=== PATIENT | male | born 1980 | race Caucasian/White ===

== ENCOUNTER 2018-07-05 18:01 | Emergency (ER) | payer BC ==
--- NOTE | 2018-07-05 19:07 | ER Document Report ---
HPI - HPI Patient complains to provider of: sciatica Time Seen by Provider: 07/05/18 18:42 Onset: Other - year Onset/Duration: Persistent Quality of pain: Achy Severity: Severe Pain Level: 5 Context: Patient presents to the emergency department with complaints of right-sided sciatica. Patient reports he has had this for about a year. Patient just moved to the area. He reports that he was taking gabapentin for a year but he recently saw a primary care provider last Saturday and was placed on muscle relaxer. He was instructed to stop taking the gabapentin. He reports he started having pain increased yesterday. He denies trauma. Denies urinary bowel incontinence or retention. Denies any further symptoms. Patient reports the same type of pain just hurts more. Denies fever. Denies history of IV drug use. Associated Symptoms: None Exacerbated by: Movement Relieved by: Denies Similar symptoms previously: Yes Recently seen / treated by doctor: Yes Past Medical History - General Information source: Patient - Social History Smoking Status: Unknown if Ever Smoked Cigarette use (# per day): No Frequency of alcohol use: None Occupation: Construction Lives with: Family Family History: Reviewed & Not Pertinent Patient has suicidal ideation: No Patient has homicidal ideation: No - Medical History Medical History: Other - factor 5 Surgical Hx: Negative Vertical Provider Document - CONSTITUTIONAL Agree With Documented VS: Yes Exam Limitations: No Limitations General Appearance: WD/WN, Mild Distress - winces when moving from supine to sitting position - INFECTION CONTROL TRAVEL OUTSIDE OF THE [place] IN LAST 30 DAYS: No - HEENT HEENT: Atraumatic, Normocephalic - NECK Neck: Normal Inspection, Supple. negative: Lymphadenopathy-Left, Lymphadenopathy-Right - RESPIRATORY Respiratory: Breath Sounds Normal, No Respiratory Distress, Chest Non-Tender - CARDIOVASCULAR Cardiovascular: Regular Rate - GI/ABDOMEN Gastrointestinal: Abdomen Soft, Abdomen Non-Tender - BACK Back: Normal Inspection - No obvious deformity good distal movement and good reflexes no erythema no swelling no warmth patient complains of pain in right buttock down right leg. Positive right straight leg test - MUSCULOSKELETAL/EXTREMETIES Musculoskeletal/Extremeties: CORI BRADFORD - NEURO Level of Consciousness: Awake, Alert, Appropriate - DERM Integumentary: Warm, Dry Adult Front & Back Diagram: 1 - reports pain with palpation 2 - radiates down the right leg Course - Re-evaluation Re-evalutation: 07/05/18 19:59 Patient was instructed on the importance of following up with his primary care provider on Saturday to discuss his back pain. Possible return to gabapentin versus the muscle relaxer. Patient also needs to follow-up with primary care provider because he did have x-rays done and he needs to follow-up to see what the x-ray said. He was warned on signs and symptoms of red flags of back pain. He verbalized understanding. No further x-rays or MRI done since patient did not have a trauma nothing new except the change of medications from gabapentin to muscle relaxer. Dictation of this chart was performed using voice recognition software; therefore, there may be some unintended grammatical errors. - Vital Signs Vital signs: Temp Pulse Resp BP Pulse Ox 98.6 F 87 18 129/76 H 94 07/05/18 18:27 07/05/18 18:27 07/05/18 18:27 07/05/18 18:27 07/05/18 18:27 Discharge - Discharge Clinical Impression: Sciatica, right side Condition: Stable Disposition: HOME, SELF-CARE Instructions: Ice Packs ([facility]), Sciatica ([facility]) Additional Instructions: *You have been evaluated for back pain, sciatica *Take your medication as prescribed *Rest/Ice- heat as indicated *Follow up with your primary care provider Saturday *Return to ED for worsening condition, changes, needs
[2018-07-05 19:22] VITALS: BP 128/75
== END 2018-07-05 19:22 | disposition home or self-care (01) ==
LOC: ER 18:01
DX: M54.31 Sciatica, right side (principal)
CPT/HCPCS: 99283

== ENCOUNTER 2018-11-19 14:39 | Emergency (ER) | payer BC ==
[2018-11-19 14:46] VITALS: BP 120/66
[2018-11-19] MEDS ORDERED: ONDANSETRON HCL INJ/PF 4 MG/2 ML SDV IV ONE (14:50)
[2018-11-19] MEDS ORDERED: DICYCLOMINE HCL 20 MG TABLET PO ONE (14:51)
[2018-11-19] MEDS ORDERED: NORMAL SALINE 1000 ML 1,000 ML IV ONE (14:51)
--- NOTE | 2018-11-19 14:53 | ER Document Report ---
ED Medical Screen (RME) - General Chief Complaint: Nausea/Vomiting/Diarrhea Stated Complaint: VOMITTING Time Seen by Provider: 11/19/18 14:50 TRAVEL OUTSIDE OF THE [place] IN LAST 30 DAYS: No - HPI Notes: 11/19/18 14:51 Patient is a 38-year-old male no significant past medical history who presents emergency department complaining of nausea, vomiting, and watery diarrhea that began today. He ate chicken at [employer] yesterday, but no other new foods. No travel or recent antibiotics. Last episode of vomiting was in the waiting room. He has associated abdominal cramping which is resolved after he either has a bowel movement or vomits. Denies any headache, fever, URI, sore throat, chest pain, palpitations, syncope, cough, shortness of breath, wheeze, dyspnea, urinary retention, dysuria, hematuria, or rash. I have treated and performed a rapid initial assessment of this patient. A comprehensive ED assessment and evaluation of the patient, analysis of test results and completion of medical decision making process will be conducted by additional ED providers. PHYSICAL EXAMINATION: GENERAL: Well-appearing, well-nourished and in no acute distress. A&Ox4. Answers questions appropriately. LUNGS: Breath sounds clear to auscultation bilaterally and equal. No wheezes rales or rhonchi. HEART: Regular rate and rhythm without murmurs, rubs, gallops. ABDOMEN: Soft, nondistended abdomen. No guarding, no rebound. Normal bowel sounds present. No CVA tenderness bilaterally. No focal tenderness noted, but cannot elicit thorough exam in PIT. Extremities: No cyanosis, clubbing, or edema b/l. NEUROLOGICAL: Normal speech, normal gait. PSYCH: Normal mood, normal affect. - Related Data Allergies/Adverse Reactions: No Known Allergies Allergy (Verified 11/19/18 14:41) Past Medical History Renal/ Medical History: Denies: Hx Peritoneal Dialysis Physical Exam - Vital signs Vitals: Temp Pulse Resp BP Pulse Ox 99.4 F 107 H 18 120/66 96 11/19/18 14:46 11/19/18 14:46 11/19/18 14:46 11/19/18 14:46 11/19/18 14:46 Course - Vital Signs Vital signs: Temp Pulse Resp BP Pulse Ox 99.4 F 107 H 18 120/66 96 11/19/18 14:46 11/19/18 14:46 11/19/18 14:46 11/19/18 14:46 11/19/18 14:46
[2018-11-19 15:21] LABS: HEMATOCRIT 47.8 % (37.9-51.0); HEMOGLOBIN 16.5 g/dL (13.5-17.0); MEAN CORPUSCULAR HEMOGLOBIN 31.4 pg (27.0-33.4); MEAN CORPUSCULAR HGB CONC 34.6 g/dL (32.0-36.0); MEAN CORPUSCULAR VOLUME 91 fl (80-97); PLATELET COUNT 206 10^3/uL (150-450); RED BLOOD COUNT 5.27 10^6/uL (4.35-5.55); RED CELL DISTRIBUTION WIDTH 13.5 % (11.5-14.0); WHITE BLOOD COUNT 9.6 10^3/uL (4.0-10.5)
[2018-11-19 15:44] LABS: ALANINE AMINOTRANSFERASE 40 U/L (21-72); ALBUMIN 4.5 g/dL (3.5-5.0); ALKALINE PHOSPHATASE 45 U/L (38-126); ANION GAP 6 (5-19); ASPARTATE AMINO TRANSFERASE 28 U/L (17-59); BILIRUBIN,DIRECT 0.2 mg/dL (0.0-0.4); BILIRUBIN,TOTAL 0.9 mg/dL (0.2-1.3); BLOOD UREA NITROGEN 22 mg/dL (7-20); CALCIUM 10.3 mg/dL (8.4-10.2); CARBON DIOXIDE 30 mmol/L (22-30); CHLORIDE 105 mmol/L (98-107); GLUCOSE 122 mg/dL (75-110); LIPASE 671.3 U/L (23-300); POTASSIUM 4.5 mmol/L (3.6-5.0); SODIUM 141.1 mmol/L (137-145); TOTAL PROTEIN 7.1 g/dL (6.3-8.2)
[2018-11-19 15:57] LABS: ABSOLUTE LYMPHOCYTES# (MANUAL) 0.5 10^3/uL (0.5-4.7); ABSOLUTE MONOCYTES # (MANUAL) 0.6 10^3/uL (0.1-1.4); ABSOLUTE NEUTROPHILS# (MANUAL) 8.4 10^3/uL (1.7-8.2); BAND NEUTROPHILS % (MANUAL) 1 % (3-5); BASOPHILS % (MANUAL) 0 % (0-2); EOSINOPHILS % (MANUAL) 1 % (0-6); LYMPHOCYTES % (MANUAL) 5 % (13-45); MONOCYTES % (MANUAL) 6 % (3-13); SEGMENTED NEUTROPHILS % (MAN) 87 % (42-78); TOTAL CELLS COUNTED 100
[2018-11-19 15:58] LABS: PLATELET COMMENT ADEQUATE; TOXIC GRANULATION SLIGHT
--- NOTE | 2018-11-19 16:26 | ER Document Report ---
ED General - General Chief Complaint: Nausea/Vomiting/Diarrhea Stated Complaint: VOMITTING Time Seen by Provider: 11/19/18 14:50 Mode of Arrival: Ambulatory Information source: Patient TRAVEL OUTSIDE OF THE [place] IN LAST 30 DAYS: No - HPI Patient complains to provider of: Nausea, vomiting, diarrhea Onset: This morning Onset/Duration: Sudden Quality of pain: Achy, Cramping Severity: Severe Pain Level: 4 Associated symptoms: Chills Exacerbated by: Denies Relieved by: Denies Similar symptoms previously: No Recently seen / treated by doctor: No Notes: 38-year-old male coming in today chief complaint of loose stools this morning which became watery stools by this afternoon. Also now having some pain. Complaining of chills but no documented fever. and daughter sick with similar symptoms. Patient suspects meal at a local restaurant may have contributed to this. - Related Data Allergies/Adverse Reactions: No Known Allergies Allergy (Verified 11/19/18 14:41) Past Medical History - General Information source: Patient - Social History Smoking Status: Former Smoker Chew tobacco use (# tins/day): Yes Family History: Reviewed & Not Pertinent Patient has suicidal ideation: No Patient has homicidal ideation: No Renal/ Medical History: Denies: Hx Peritoneal Dialysis Review of Systems - Review of Systems Notes: Constitutional: No fevers. + chills. EENT: No eye redness. No eye pain. No ear pain. No sore throat. Cardiovascular: No chest pain. No palpitations. Respiratory: No cough. No shortness of breath. No respiratory distress. Gastrointestinal: + CRAMPY ABDOMINAL PAIN. Positive nausea, vomiting, and diarrhea Genitourinary: Atraumatic. No lesions. No pain. No discharge. Musculoskeletal: Atraumatic. No swelling. No deformities. Skin: No rash or lesions. Lymphatic: No swollen lymph nodes. Neurologic: No headache. No syncope. Psychiatric: No suicidal or homicidal ideation. Physical Exam - Vital signs Vitals: Temp Pulse Resp BP Pulse Ox 99.4 F 107 H 18 120/66 96 11/19/18 14:46 11/19/18 14:46 11/19/18 14:46 11/19/18 14:46 11/19/18 14:46 - Notes Notes: General: Well-developed, well-nourished. In no acute distress. Non-toxic appearing. Cardiac: Well-perfused. Regular rate and rhythm. No murmurs, rubs, or gallops. Pulmonary: No respiratory distress. No cyanosis. Bilateral lung elkins are clear to auscultation. Abdominal: Non-distended. Non-rigid. Bowels sounds are present in all four quadrants. No guarding or rebound. HEENT: Head is atraumatic. Conjunctivae not reddened. No tearing. PERRL. EOMI. Orbits atraumatic. No periorbital swelling or erythema. Oropharynx is without erythema, swelling, or exudates. Neck: Supple. No adenopathy. No meningismus. Dermatologic: Warm with good turgor. No rash. Atraumatic. Chest: Atraumatic. No chest wall tenderness to palpation. Musculoskeletal: Moves all extremities well. No range of motion deficits. no muscular or joint tenderness. No paraspinal muscle tenderness. no midline spinal tenderness or step-off. Genitourinary: Examination deferred Neurologic: No gross neurologic deficits. Psychiatric: Normal mood. Course - Re-evaluation Re-evalutation: 11/19/18 16:25 Patient's labs are reassuring. Lipase is a little bit elevated. Patient does not have any classic signs or symptoms of pancreatitis. Is not really having a ny major abdominal pain. In the absence of fever in the presence of diarrhea in the history of multiple family versus infected, suspect viral gastroenteritis. He is sipping on bottle water at this time without throwing it up. Antinausea medication and fluids were ordered in triage. Urinalysis is pending. 11/19/18 17:57 The urinalysis is normal. Lipase is elevated by think this is just from [place] stroenteritis. Does not have a epigastric pain or right upper quadrant pain. Also the history is more suggestive of gastroenteritis. If his symptoms get worse I will have him return for further evaluation. In the meantime will care doctor the next couple of days or go to [facility] for recheck of lipase to make sure it is normalizing. - Vital Signs Vital signs: Temp Pulse Resp BP Pulse Ox 99.4 F 107 H 18 120/66 96 11/19/18 14:46 11/19/18 14:46 11/19/18 14:46 11/19/18 14:46 11/19/18 14:46 - Laboratory Result Diagrams: 11/19/18 15:06 11/19/18 15:06 Laboratory results interpreted by me: 11/19/18 11/19/18 11/19/18 15:06 15:06 17:13 Seg Neuts % (Manual) 87 H Band Neutrophils % 1 L Lymphocytes % (Manual) 5 L Abs Neuts (Manual) 8.4 H BUN 22 H Glucose 122 H Calcium 10.3 H Lipase 671.3 H Urine Ascorbic Acid 20 H Discharge - Discharge Clinical Impression: Gastroenteritis, Elevated lipase Condition: Good Instructions: Clear Liquid Diet ([facility]), Antinausea Medication ([facility]), Diarrhea, Nonspecific ([facility]), Gastroenteritis (adult) ([facility]), Intravenous (IV) Fluids ([facility]), Reglan ([facility]), Vomiting ([facility]) Additional Instructions: We are writing you a prescription for Reglan, which is an antinausea medication that you can take at home as needed. Because we believe that your diarrhea is infectious, we do not want to do anything to hinder your diarrhea. However if you continue to throw up he will get dehydrated. Your lab work looks good with the exception of your lipase level which is slightly elevated. It can commonly be elevated in situations of stomach viruses such as the one you appear to be presenting with. I would like you to have this lipase level rechecked in the next couple of days to make sure it is trending downward. Reglan as needed for nausea and vomiting. Again, no diarrhea medicine is recommended to help purge the infection from your system. If symptoms are worsening and your abdominal pain is worsening you are encouraged to return back to the emergency department. Otherwise routine follow-up with your primary care doctor 1-2 days. Prescriptions: Metoclopramide HCl [Reglan 10 mg Tablet] 1 tab PO Q6HP PRN #20 tablet PRN Reason: Referrals: SRINI ZAYAS MD [Primary Care Provider] - 11/21/18 Print Language: Montenegrin
[2018-11-19 17:37] LABS: APPEARANCE,URINE SLIGHTLY-CLOUDY; BILIRUBIN,URINE NEGATIVE (NEGATIVE); COLOR,URINE YELLOW; GLUCOSE, URINE NEGATIVE (NEGATIVE); KETONES,URINE NEGATIVE (NEGATIVE); LEUKOCYTE ESTERASE,URINE NEGATIVE (NEGATIVE); NITRITE,URINE NEGATIVE (NEGATIVE); PROTEIN,URINE NEGATIVE (NEGATIVE); URINE SPECIFIC GRAVITY 1.025; UROBILINOGEN,URINE NEGATIVE mg/dL (<2.0)
[2018-11-19] MEDS ORDERED: METOCLOPRAMIDE HCL INJ/PF 10 MG/2 ML SDV IV ONE (18:09)
== END 2018-11-19 18:46 | disposition home or self-care (01) ==
LOC: ER 14:39
DX: K52.9 Noninfective gastroenteritis and colitis, unspecified (principal); R11.2 Nausea with vomiting, unspecified; R68.83 Chills (without fever); R10.9 Unspecified abdominal pain; R74.8 Abnormal levels of other serum enzymes; Z72.0 Tobacco use
CPT/HCPCS: 99284; 96361; 96374; 96375; 36415; 83690; 85025; 80053; 81001; J3490; J2765; J2405; J7030